=== PATIENT | female | born 1980 | race Caucasian/White ===

== ENCOUNTER → 2018-08-24 | Outpatient (CLI) | payer OTHER ==
[2018-08-24 13:10] VITALS: BP 131/67; PULSE 66; RESP 12; TEMP 98; BMI 31.6
--- NOTE | 2018-08-24 14:10 | P.GSHP ---
History of Present Illness H&P Date: 08/24/18 Chief Complaint: abnormal mammogram/ultrasound The patient is a 38-year-old white female who presents for breast evaluation. She underwent a bilateral screening mammogram on 820 [id number]. As a result of this study it was recommended that she undergo a left breast diagnostic mammogram [place] [address]. As a result of these studies it was recommended that she undergo a repeat left breast mammogram in 6 months secondary to a faint density identified over the left pectoralis muscle. Additionally on ultrasound she was noted to have 2 lesions one at the 3 o'clock position which was 1.3 cm x 1 cm parallel to the skin and one at the 1 o'clock position which was 0.7 cm x 0.6 cm and was felt to be a suspicious enough to warrant a biopsy of this area. She herself has noted in the 11 o'clock position of the left breast a skin change and slight nodularity and in the 1 o'clock position of the breast is noted a skin change but no discrete nodularity. She does not have any history of infection or trauma to the breast. She has no history of any abnormal nipple discharge. Family history: 1. paternal grandfather: colon cancer 70's Hormonal history: menarche: 13 : 2, 2 children, first at 15, breast fed: no periods: hysterectomy: early 30's took both ovaries, endometriosis BCP: none hormones: none Surgical history: 1. Total abdominal hysterectomy 2. 2 ear surgeries on the right ear Medical History: 1. seizures 2. psoriasis 3. low back pain Social History: smoke: none alcohol: occasional drugs: Marijuana daily used for seizures and lower back pain - Constitutional Comment: BMI 31.6 Constitutional: Reports sweats, Denies chills, Denies fever - EENT Eyes: denies blurred vision, denies pain Ears: deny: decreased hearing, tinnitus Ears, nose, mouth and throat: Denies headache, Denies sore throat - Breasts Breasts: bilateral: as per HPI - Cardiovascular Cardiovascular: Denies chest pain, Denies shortness of breath - Respiratory Respiratory: Denies cough, Denies 7 - Gastrointestinal Comment: Irritable Bowel syndrome Gastrointestinal: Denies abdominal pain, Denies diarrhea, Denies nausea, Denies vomiting - Genitourinary (Female) Genitourinary: Denies dysuria, Denies hematuria - Menstruation Menstruation: Reports post hysterectomy - Musculoskeletal Comment: arthritis lower back - Integumentary Comment: psoriasis Integumentary: Denies pruritus, Denies rash - Neurological Neurological: Denies numbness, Denies weakness - Psychiatric Psychiatric: Denies anxiety, Denies depression - Endocrine Endocrine: Denies fatigue, Denies weight change - Hematologic/Lymphatic Comment: none - Allergic/Immunologic Comment: none Allergic/Immunologic: Reports as per HPI Past Medical History Past Medical History: Seizure Disorder History of Any Multi-Drug Resistant Organisms: None Reported Past Surgical History: Ear Surgery, Hysterectomy Smoking Status: Never smoker Past Drug Use History: Marijuana - Past Family History Mother Family Medical History: Fibromyalgia, Rheumatoid Arthritis (RA), Skin Disorder Father History Unknown: Yes Medications and Allergies Home Medications Medication Instructions Recorded Confirmed Type Clindamycin Topical Soln 1 applic TOPICAL BID 08/24/18 08/24/18 History [Cleocin-T Topical Soln] Surgical - Exam Vital Signs Temp Pulse Resp BP Pulse Ox 98 F 66 12 131/67 99 08/24/18 13:03 08/24/18 13:03 08/24/18 13:03 08/24/18 13:03 08/24/18 13:03 BMI 31.6 - General well developed, well nourished, no distress - Eyes normal ocular movement, no icteric - ENT no hearing loss, no congestion - Neck no masses, trachea midline - Respiratory normal respiratory effort, clear to auscultation - Cardiovascular Rhythm: regular Heart Sounds: normal: S1, S2 - Abdomen Abdomen: soft, non tender, no guarding, no rigid, no rebound - Integumentary tattoos no rash, no abnormal pigmentation - Neurologic no disoriented, no combative - Musculoskeletal normal gait, normal posture - Psychiatric oriented to time, oriented to person, oriented to place, speech is normal, memory intact breast exam: right breast: multi-positional examination no dominant masses or nodules of concern, fibrocystic changes, changes of psoriasis noted on the breast Right axilla: No adenopathy of concern Left breast: Multi-positional examination no dominant masses or nodules of concern in the breast parenchyma, there is increased fullness at the 1 o'clock position without a discrete mass There appears to be a sebaceous cyst at the 11 o'clock position of the breast and a possible cystic area between the 1 to 2 o'clock position of the breast Left axilla: No dominant masses or nodules of concern Results radiographs reviewed Assessment and Plan Assessment: Impression: 1. Radiographic/ultrasound abnormality of the left breast 2. Probable sebaceous cyst at the 11 o'clock position of the left breast and a questionable cystic area at the 1 to 2 o'clock position of the left breast 3. Fibrocystic changes of the breast noted on palpation 4. Seizures 5. Psoriasis Plan: 1. Ultrasound-guided core biopsy of the left breast 2. Following results of this will review pathology and we'll most likely recommend excision of what appears to be sebaceous cyst at 11:00 and possibly 1 to 2:00 in the operating room 3. Medical management of medical problems 4. Follow up here 1 week after ultrasound core biopsy of the left breast Cc: Dr. Hong
== END | disposition home or self-care (01) ==
LOC: WWCWWP 13:00 → EDSTATUS 13:20
PROVIDERS: ATTEND Surgery
DX: Z53.9 Procedure and treatment not carried out, unspecified reason (principal)

== ENCOUNTER → 2018-08-29 | Day surgery (SDC) | payer OTHER ==
[2018-08-29 12:09] VITALS: RESP 16; BMI 31.6
[2018-08-29 13:42] VITALS: BP 109/75; PULSE 65; TEMP 98.2
--- NOTE | 2018-08-29 16:02 | USB ---
Ultrasound-guided breast cyst aspiration HISTORY: Abnormal mammogram, abnormal left breast ultrasound PROCEDURE: Maximal barrier technique was utilized. Ultrasound was used to sterile technique. The skin overlying a suitable path to the patient's cystic focus at the 1:00 position of the left breast zone A was loca lized with ultrasound and the overlying skin prepped and draped. Lidocaine used for local anesthesia. 21-gauge needle was advanced under ultrasound and the lesion was aspirated, dark fluid obtained. Les ion collapsed following aspiration. There is no immediate application. Hemostasis achieved. Patient r emained in stable condition. IMPRESSION: Status post ultrasound-guided breast cyst aspiration, precautionary follow-up breast ultr asound could be performed in 6 months.
== END ==
LOC: RADUSWWP 11:49
PROVIDERS: ATTEND Surgery
DX: N60.02 Solitary cyst of left breast (principal)
CPT/HCPCS: 76942

== ENCOUNTER → 2018-09-06 | Outpatient (CLI) | payer OTHER ==
[2018-09-06 13:33] VITALS: BP 133/80; PULSE 80; RESP 20; TEMP 98.6; BMI 27.2
--- NOTE | 2018-09-06 13:33 | P.PN ---
Subjective Progress Note Date: 09/06/18 Principal diagnosis: Cystic lesion in the breast The patient is a 38-year-old white female who is status post ultrasound-guided cyst aspiration of the left breast approximately 1 week ago. At that time she was noted to have cystic fluid with resolution of what appeared to be a simple cyst and the fluid was not sent for cytology. The patient returns today for discussion regarding the procedure. At additional he the patient was noted at her prior appointment to have a lesion at 11:00 and one at the 1 to 2 o'clock position in the breast. These 2 areas remained persistent. We have discussed the fact that the cystic findings were most likely fibrocystic in nature this will be followed closely at minimum a repeat ultrasound of the left breast in 6 months time with appointment at that time. Patient does not have any complaints related to the procedure. Objective - Constitutional General appearance: Present: obese - EENT Eyes: Present: EOMI ENT: Present: hearing grossly normal - Respiratory Respiratory: bilateral: CTA - Cardiovascular Rhythm: regular Heart sounds: normal: S1, S2 - Gastrointestinal General gastrointestinal: Present: soft - Integumentary Integumentary Comment(s): Right breast examination: No evidence of any infection or hematoma related to the prior cyst aspiration There remains nodularity at the 11 o'clock position in the 1 2 o'clock position in the left breast That at the 11 o'clock position appears to be consistent with a sebaceous cyst. That in the morning 2 o'clock position appears to be slightly deeper. We have therefore recommended FNA of the area at the 1 to 2 o'clock position in the left breast The area of the 1 to 2 o'clock position was prepped using Betadine a 22-gauge needle was inserted into the area of concern multiple passes were obtained and cells were collected these were placed on a slide and sent to pathology. Assessment and Plan Assessment: Impression: 1. Cystic changes left breast 2. Await FNA results Plan: 1. Excision in the OR of probable sebaceous cyst 11:00 area of the left breast 2. Excision of cystic area in the left breast 1 to 2 o'clock position depending on FNA results and clinical status of the patient Orifice of the procedure discussed with the patient and her this was scheduled in the near future. Cc:Dr. Hong
== END | disposition home or self-care (01) ==
LOC: WWCWWP 12:49
PROVIDERS: ATTEND Surgery
DX: N64.89 Other specified disorders of breast (principal)
CPT/HCPCS: 88173; 88305

== ENCOUNTER → 2018-09-14 | Outpatient (CLI) | payer OTHER ==
[2018-09-14 10:24] VITALS: BP 109/76; PULSE 90; RESP 20; TEMP 98.4; BMI 31.6
--- NOTE | 2018-09-14 10:50 | P.PN ---
Progress Note - Text Progress Note Date: 09/14/18 The patient is a 38-year-old white female who is status post FNA of an area of concern in the left breast. The FNA was benign breast tissue. The patient does have residual nodularity consistent with a most likely sebaceous cyst at approximately the 12 o'clock position of the left breast. We will continue to follow the breast conservatively for the areas for which she had a core biopsy and the FNA. We will recommend excision in the operating room of sebaceous cyst at the 12 o'clock position of the left breast. Physical exam: Lungs: Clear Heart: Regular rate and rhythm Abdomen: Soft Breast examination: Left breast no evidence of any ecchymosis or infection related to core biopsies, nodularity 12 o'clock position most likely sebaceous cyst Impression: 1. Fibrocystic breast changes 2. Probable sebaceous cyst 12:00 left breast Plan: 1. Conservative management and follow-up of fibrocystic breast changes repeat left breast mammogram and ultrasound in 6 months 2. Excision of cystic lesion of the left breast in the operating room The patient and her understand the risks and benefits and wished to proceed CC: Dr. Hong
== END ==
LOC: WWCWWP 09:41
PROVIDERS: ATTEND Surgery
DX: Z53.9 Procedure and treatment not carried out, unspecified reason (principal)

== ENCOUNTER 2018-10-09 10:17 | Day surgery (SDC) | payer OTHER ==
[2018-10-05 08:33] VITALS: BMI 31.6
[~2018-10-09 10:17] MED LIST: DEXAMETHASONE SOD PHOSPHATE 10 MG/ML 1 ML VIAL IV ONE; HEPARIN SODIUM,PORCINE 5,000 UNIT/ML 1 ML VIAL SQ ONE; HYDROmorphone 0.5 MG/0.5 ML SYRINGE IVP PRN; LACTATED RINGERS 1,000 ML IV SCH; ONDANSETRON 4 MG/2 ML VIAL IVP ONE; Pre Op ABX Message 1 EACH MISC MISCELLANE ONE; SCOPOLAMINE 1.5MG/72HR PATCH TRANSDERM ONE
[2018-10-09] MEDS ORDERED: LIDOCAINE 1% 20 ML VIAL (10MG/ML) FOR IV START INTRADERMA ONE (11:54)
[2018-10-09] MEDS ORDERED: HEPARIN SODIUM,PORCINE 5,000 UNIT/ML 1 ML VIAL SQ ONE (14:52)
[2018-10-09] MEDS ORDERED: PROPOFOL 10 MG/ML 20 ML VIAL IV ONE (15:07)
[2018-10-09] MEDS ORDERED: MIDAZOLAM 2 MG/2 ML VIAL ONE (15:07)
[2018-10-09] MEDS ORDERED: LIDOCAINE 1% INJ 10MG/ML (20 ML MDV) ONE (15:07)
[2018-10-09] MEDS ORDERED: fentaNYL (PF) 50 MCG/ML 2 ML AMP ONE (15:07)
[2018-10-09] MEDS ORDERED: LIDOCAINE 1% INJ 10MG/ML (20 ML MDV) SQ ONE ×2 (15:09)
--- NOTE | 2018-10-09 15:37 | P.OP ---
Date of Procedure: 10/09/18 Preoperative Diagnosis: Cystic lesion left breast 12:00 Postoperative Diagnosis: Same Procedure(s) Performed: Excision of superficial cystic lesion left breast 12:00 Anesthesia: MAC Surgeon: Cristina Alcantar Estimated Blood Loss (ml): 1 IV fluids (ml): 200 Pathology: other (Superficial cystic lesion left breast) Condition: stable Disposition: PACU Indications for Procedure: Cystic lesion left breast intermittently fluctuating in size suspect may be sebaceous cyst Operative Findings: Cystic lesion superficial tissue left breast Description of Procedure: The patient was brought to the operating room and the left breast was prepped and draped in a sterile fashion following sedation. 1% lidocaine was used to anesthetize the area of concern. An elliptical incision was made around the cystic area of concern. Incision was approximately 3 cm x 1 cm in size. The incision was carried through the skin and subcutaneous tissue into the superficial subcutaneous tissue. The lesion was excised. After assured that hemostasis was attained a deep 4-0 Vicryl was placed. This is followed by 4-0 Monocryl skin closure. The patient tolerated the procedure in stable condition. All instrument and sponge counts were correct at the end of the case.
--- NOTE | 2018-10-09 15:39 | P.DS ---
Providers Attending physician: Cristina Alcantar Primary care physician: Lizzeth Hong Plan - Discharge Summary New Discharge Prescriptions: No Action Betamethasone Dipropionate [Diprolene 0.05% Ointment] 1 each TOPICAL BID Divalproex [Depakote] 250 mg PO QAM Divalproex [Depakote] 500 mg PO HS Discharge Medication List Betamethasone Dipropionate [Diprolene 0.05% Ointment] 1 each TOPICAL BID [History] Divalproex [Depakote] 250 mg PO QAM 08/28/18 [History] Divalproex [Depakote] 500 mg PO HS 10/05/18 [History] Follow up Appointment(s)/Referral(s): Cristina Alcantar MD [STAFF PHYSICIAN] - 1 Week Activity/Diet/Wound Care/Special Instructions: Do not drive today May shower after 48 hours extra Strength Tylenol as needed for pain Discharge Disposition: HOME SELF-CARE
[2018-10-09 15:55] VITALS: TEMP 97.5
[2018-10-09 16:04] VITALS: RESP 16
[2018-10-09 16:51] VITALS: BP 119/84; PULSE 62
== END 2018-10-09 17:08 | disposition home or self-care (01) ==
LOC: OR 10:17
PROVIDERS: ATTEND Surgery
DX: N60.02 Solitary cyst of left breast (principal); L40.9 Psoriasis, unspecified; G40.909 Epilepsy, unspecified, not intractable, without status epilepticus; Z79.899 Other long term (current) drug therapy
CPT/HCPCS: 19120; J2250; J1644; J1100; J2405; J2001; J3010; J2704; 88305

== ENCOUNTER → 2018-10-25 | Outpatient (CLI) | payer OTHER ==
[2018-10-25 08:45] VITALS: BP 119/73; PULSE 72; RESP 18; TEMP 98.2; BMI 31.6
--- NOTE | 2018-10-25 09:23 | P.PN ---
Progress Note - Text Progress Note Date: 10/25/18 Patient is a 38-year-old white female postoperative from a left breast biopsy. Pathology revealed nodular hypertrophic scar. The patient has no complaints at this time. Incision clean and dry Impression: 1. Initially the patient was seen with a radiographic abnormality in the left breast and was noted to have a palpable abnormality for which open biopsy was ultimately performed. The patient did have aspiration of a cystic lesion in the left breast at 1:00 on [id number]. She also had an FNA of an area in the left breast which revealed ductal epithelial cells and adipose tissue. Plan: 1. Repeat left breast mammogram and ultrasound in 6 months with physician exam at that time Cc: Dr. Hong
== END | disposition home or self-care (01) ==
LOC: WWCWWP 08:26
PROVIDERS: ATTEND Surgery
DX: Z53.9 Procedure and treatment not carried out, unspecified reason (principal)

== ENCOUNTER 2020-11-06 14:32 | Emergency (ER) | payer OTHER ==
[2020-11-06] MEDS: SODIUM CHLORIDE 0.9% 500 ML 500 ML IV STA (15:20)
--- NOTE | 2020-11-06 15:35 | ED ---
General Adult HPI - General Chief complaint: Abdominal Pain Stated complaint: ABD pain Time Seen by Provider: 11/06/20 14:56 Source: patient, RN notes reviewed, old records reviewed Mode of arrival: ambulatory Limitations: no limitations - History of Present Illness Initial comments: 40-year-old female presenting for evaluation of abdominal pain. Patient has been pain for the past 4 days. She's had subjective fever and chills. Pain is predominantly around her belly button as well as right lower quadrant. She denies dysuria or hematuria. She denies flank pain. She does report some nausea and diarrhea. Previous history of hysterectomy. - Related Data Home Medications Medication Instructions Recorded Confirmed Betamethasone Dipropionate 1 each TOPICAL BID 08/28/18 10/25/18 [Diprolene 0.05% Ointment] Divalproex [Depakote] 250 mg PO QAM 08/28/18 10/25/18 Divalproex [Depakote] 500 mg PO HS 10/05/18 10/25/18 Allergies Allergy/AdvReac Type Severity Reaction Status Date / Time No Known Allergies Allergy Verified 11/06/20 16:03 Review of Systems ROS Statement: Those systems with pertinent positive or pertinent negative responses have been documented in the HPI. ROS Other: All systems not noted in ROS Statement are negative. Past Medical History Past Medical History: Seizure Disorder, Skin Disorder Additional Past Medical History / Comment(s): psoriasis History of Any Multi-Drug Resistant Organisms: None Reported Past Surgical History: Ear Surgery, Hysterectomy Past Anesthesia/Blood Transfusion Reactions: No Reported Reaction Past Psychological History: No Psychological Hx Reported Smoking Status: Never smoker Past Alcohol Use History: None Reported Past Drug Use History: Marijuana - Past Family History Mother Family Medical History: Fibromyalgia, Rheumatoid Arthritis (RA), Skin Disorder Father History Unknown: Yes General Exam Limitations: no limitations General appearance: alert, in no apparent distress Head exam: Present: atraumatic, normocephalic Eye exam: Present: normal appearance, PERRL ENT exam: Present: mucous membranes dry Neck exam: Present: normal inspection. Absent: tenderness Respiratory exam: Present: normal lung sounds bilaterally. Absent: respiratory distress Cardiovascular Exam: Present: regular rate, normal rhythm GI/Abdominal exam: Present: soft, tenderness (Periumbilical or right lower quadrant). Absent: distended, guarding, rebound Extremities exam: Present: normal inspection, normal capillary refill. Absent: pedal edema Neurological exam: Present: alert, oriented X3, CN II-XII intact. Absent: motor sensory deficit Psychiatric exam: Present: normal affect, normal mood Skin exam: Present: warm, dry, intact. Absent: cyanosis, diaphoretic Course Vital Signs 11/06/20 11/06/20 14:46 15:15 Temperature 98.3 F Pulse Rate 61 72 Respiratory 18 18 Rate Blood Pressure 139/85 137/94 O2 Sat by Pulse 100 100 Oximetry Medical Decision Making - Medical Decision Making 40-year-old female presenting with right-sided abdominal pain. Workup is initiated, normal CBC, no leukocytosis, normal CMP, negative urinalysis. CT does show colitis in the ascending colon which is consistent with the patient's symptoms however underlying mass is not excluded. Patient is informed of this inflammatory change and the need for colonoscopy after her symptoms resolved. She has had previous colonoscopy with Dr. Araya and I do recommend that she follows up on an outpatient basis. Diagnosis: Abdominal pain, colitis - Lab Data Result diagrams: 11/06/20 15:00 11/06/20 15:00 Lab Results 11/06/20 11/06/20 11/06/20 Range/Units 15:00 15:00 15:00 WBC 7.2 (3.8-10.6) k/uL RBC 4.33 (3.80-5.40) m/uL Hgb 13.8 (11.4-16.0) gm/dL Hct 40.7 (34.0-46.0) % MCV 94.1 (80.0-100.0) fL MCH 32.0 (25.0-35.0) pg MCHC 34.0 (31.0-37.0) g/dL RDW 13.2 (11.5-15.5) % Plt Count 240 (150-450) k/uL MPV 8.3 Neutrophils % 68 % Lymphocytes % 23 % Monocytes % 6 % Eosinophils % 1 % Basophils % 1 % Neutrophils # 4.9 (1.3-7.7) k/uL Lymphocytes # 1.6 (1.0-4.8) k/uL Monocytes # 0.4 (0-1.0) k/uL Eosinophils # 0.1 (0-0.7) k/uL Basophils # 0.0 (0-0.2) k/uL PT 10.5 (9.0-12.0) sec INR 1.0 (<1.2) APTT 23.8 (22.0-30.0) sec Sodium (137-145) mmol/L Potassium (3.5-5.1) mmol/L Chloride (98-107) mmol/L Carbon Dioxide (22-30) mmol/L Anion Gap mmol/L BUN (7-17) mg/dL Creatinine (0.52-1.04) mg/dL Est GFR (CKD-EPI)AfAm (>60 ml/min/1.73 sqM) Est GFR (CKD-EPI)NonAf (>60 ml/min/1.73 sqM) Glucose (74-99) mg/dL Plasma Lactic Acid Gerard (0.7-2.0) mmol/L Calcium (8.4-10.2) mg/dL Total Bilirubin (0.2-1.3) mg/dL AST (14-36) U/L ALT (4-34) U/L Alkaline Phosphatase (38-126) U/L Total Protein (6.3-8.2) g/dL Albumin (3.5-5.0) g/dL Amylase (30-110) U/L Lipase (23-300) U/L Urine Color Light Yellow Urine Appearance Clear (Clear) Urine pH 7.0 (5.0-8.0) Ur Specific [place] 1.012 (1.001-1.035) Urine Protein Negative (Negative) Urine Glucose (UA) Negative (Negative) Urine Ketones Negative (Negative) Urine Blood Negative (Negative) Urine Nitrite Negative (Negative) Urine Bilirubin Negative (Negative) Urine Urobilinogen <2.0 (<2.0) mg/dL Ur Leukocyte Esterase Negative (Negative) 11/06/20 11/06/20 Range/Units 15:00 15:00 WBC (3.8-10.6) k/uL RBC (3.80-5.40) m/uL Hgb (11.4-16.0) gm/dL Hct (34.0-46.0) % MCV (80.0-100.0) fL MCH (25.0-35.0) pg MCHC (31.0-37.0) g/dL RDW (11.5-15.5) % Plt Count (150-450) k/uL MPV Neutrophils % % Lymphocytes % % Monocytes % % Eosinophils % % Basophils % % Neutrophils # (1.3-7.7) k/uL Lymphocytes # (1.0-4.8) k/uL Monocytes # (0-1.0) k/uL Eosinophils # (0-0.7) k/uL Basophils # (0-0.2) k/uL PT (9.0-12.0) sec INR (<1.2) APTT (22.0-30.0) sec Sodium 137 (137-145) mmol/L Potassium 4.6 (3.5-5.1) mmol/L Chloride 105 (98-107) mmol/L Carbon Dioxide 26 (22-30) mmol/L Anion Gap 6 mmol/L BUN 10 (7-17) mg/dL Creatinine 0.80 (0.52-1.04) mg/dL Est GFR (CKD-EPI)AfAm >90 (>60 ml/min/1.73 sqM) Est GFR (CKD-EPI)NonAf >90 (>60 ml/min/1.73 sqM) Glucose 91 (74-99) mg/dL Plasma Lactic Acid Gerard 1.0 (0.7-2.0) mmol/L Calcium 9.3 (8.4-10.2) mg/dL Total Bilirubin 0.6 (0.2-1.3) mg/dL AST 25 (14-36) U/L ALT 16 (4-34) U/L Alkaline Phosphatase 65 (38-126) U/L Total Protein 7.4 (6.3-8.2) g/dL Albumin 4.4 (3.5-5.0) g/dL Amylase 36 (30-110) U/L Lipase 32 (23-300) U/L Urine Color Urine Appearance (Clear) Urine pH (5.0-8.0) Ur Specific [place] (1.001-1.035) Urine Protein (Negative) Urine Glucose (UA) (Negative) Urine Ketones (Negative) Urine Blood (Negative) Urine Nitrite (Negative) Urine Bilirubin (Negative) Urine Urobilinogen (<2.0) mg/dL Ur Leukocyte Esterase (Negative) Disposition Clinical Impression: Abdominal pain, Colitis Disposition: HOME SELF-CARE Condition: Good Instructions (If sedation given, give patient instructions): Abdominal Pain (ED), Colitis (ED) Is patient prescribed a controlled substance at d/c from ED?: No Referrals: Lizzeth Hong DO [Primary Care Provider] - 1-2 days Danny Araya MD [STAFF PHYSICIAN] - 1-2 days Time of Disposition: 16:05
[2020-11-06 15:36] LABS: Basophils % (A) 1 %; Eosinophils # (A) 0.1 k/uL (0-0.7); Eosinophils % (A) 1 %; HCT 40.7 % (34.0-46.0); HGB 13.8 gm/dL (11.4-16.0); Lymphocytes # (A) 1.6 k/uL (1.0-4.8); Lymphocytes % (A) 23 %; MCV 94.1 fL (80.0-100.0); Mean Platelet Volume 8.3; Monocytes # (A) 0.4 k/uL (0-1.0); Monocytes % (A) 6 %; Neutrophils # (A) 4.9 k/uL (1.3-7.7); Neutrophils % (A) 68 %; Platelet Count 240 k/uL (150-450); RBC 4.33 m/uL (3.80-5.40); RDW 13.2 % (11.5-15.5); WBC 7.2 k/uL (3.8-10.6)
[2020-11-06 15:39] LABS: Appearance,Urine Clear (Clear); Bilirubin,Urine Negative (Negative); Blood,Urine Negative (Negative); Color,Urine Light Yellow; Glucose,Urine (UA) Negative (Negative); Ketones,Urine Negative (Negative); Leukocyte Esterase,Urine Negative (Negative); Nitrite,Urine Negative (Negative); Protein,Urine Negative (Negative); Specific Gravity,Urine 1.012 (1.001-1.035); Urobilinogen,Urine <2.0 mg/dL (<2.0)
[2020-11-06 15:46] LABS: ALT 16 U/L (4-34); AST 25 U/L (14-36); African American GFR (CKD) >90 (>60 ml/min/1.73 sqM); Albumin 4.4 g/dL (3.5-5.0); Alkaline Phosphatase 65 U/L (38-126); Amylase 36 U/L (30-110); Anion Gap 6 mmol/L; Blood Urea Nitrogen 10 mg/dL (7-17); Calcium 9.3 mg/dL (8.4-10.2); Carbon Dioxide 26 mmol/L (22-30); Chloride 105 mmol/L (98-107); Glucose 91 mg/dL (74-99); Lipase 32 U/L (23-300); Non-African American GFR(CKD) >90 (>60 ml/min/1.73 sqM); Potassium 4.6 mmol/L (3.5-5.1); Sodium 137 mmol/L (137-145); Total Bilirubin 0.6 mg/dL (0.2-1.3); Total Protein 7.4 g/dL (6.3-8.2)
[2020-11-06 15:51] LABS: Partial Thromboplastin Time 23.8 sec (22.0-30.0); Prothrombin Time 10.5 sec (9.0-12.0)
--- NOTE | 2020-11-06 15:52 | CT ---
EXAMINATION TYPE: CT abdomen pelvis w con DATE OF EXAM: 11/06/2020 COMPARISON: 01/18/2012 INDICATION: umbilical pain, RLQ pain DLP: 1194.8 mGycm, Automated exposure control for dose reduction was used. CONTRAST: 100 mL of Isovue 300. Study performed without Oral Contrast TECHNIQUE: Axial images were obtained from above the diaphragm to the pubic rami in the axial plane a t 5 mm thick sections. Reconstructed images are reviewed on the computer in the coronal plane. FINDINGS: Limited CT sections are obtained the lung bases. The lung bases are clear. CT ABDOMEN: Liver: Couple small cysts are likely present within the liver. Spleen: Normal Pancreas: Normal Adrenal glands: The adrenal glands are normal. Gallbladder: Normal Kidneys: No masses are evident. No hydronephrosis is present. No cysts are present. Delayed images were obtained through the kidneys, which remain unremarkable. Aorta: Normal Inferior vena cava: Normal. CT PELVIS: Loops of bowel within the abdomen and pelvis are normal. The study is without oral contrast limit ing bowel evaluation. Mild wall thickening may be within the ascending colon region. Mild colitis cou ld be considered. Diverticuli are scattered within the sigmoid colon there is fecal debris within the sigmoid colon. Some wall thickening within the sigmoid is not excluded. Appendix: The appendix is visualized appears normal. Urinary bladder: Normal. Genitourinary structures: Uterus is not identified. What appears to be the left ovary may contain a 1 .6 cm cyst. Osseous structures: No suspicious lytic or sclerotic lesions. IMPRESSIONS: 1. There may be some mild colitis of the ascending colon and possibly through the sigmoid colon. Con bat person follow-up of the sigmoid colon, underlying mass is not excluded. 2. Diverticulosis without acute diverticulitis. 3. Appendix is visualized is normal
[2020-11-06 16:19] VITALS: BP 140/90; PULSE 70; RESP 16; TEMP 97.9
== END 2020-11-06 16:19 | disposition home or self-care (01) ==
LOC: EC 14:32
DX: K52.9 Noninfective gastroenteritis and colitis, unspecified (principal); G40.909 Epilepsy, unspecified, not intractable, without status epilepticus; Z79.899 Other long term (current) drug therapy; Z90.710 Acquired absence of both cervix and uterus
CPT/HCPCS: 99284; 96360; 36415; 80053; 82150; 83605; 83690; 85025; 85610; 85730; 81003; 74177; Q9967

== ENCOUNTER 2020-12-03 08:53 | Day surgery (SDC) | payer OTHER ==
[2020-12-01 15:39] VITALS: BMI 31.6
[~2020-12-03 08:53] MED LIST changes: -DEXAMETHASONE SOD PHOSPHATE 10 MG/ML 1 ML VIAL IV ONE; -HEPARIN SODIUM,PORCINE 5,000 UNIT/ML 1 ML VIAL SQ ONE; -HYDROmorphone 0.5 MG/0.5 ML SYRINGE IVP PRN; +LIDOCAINE 1% (10MG/ML) FOR IV START INTRADERMA PRN; -ONDANSETRON 4 MG/2 ML VIAL IVP ONE; -Pre Op ABX Message 1 EACH MISC MISCELLANE ONE; -SCOPOLAMINE 1.5MG/72HR PATCH TRANSDERM ONE
[2020-12-03 10:07] VITALS: RESP 16; TEMP 98.6
[2020-12-03] MEDS ORDERED: PROPOFOL 10 MG/ML 20 ML VIAL IV ONE (10:45)
--- NOTE | 2020-12-03 10:48 | P.GSHP ---
History of Present Illness H&P Date: 12/03/20 Chief Complaint: Constipation, diarrhea possible colitis This a 40-year-old female who presents today for colonoscopy. She's had issues with intermittent diarrhea and constipation. She's being worked colitis. Also had complaints of abdominal pain. Past Medical History Past Medical History: Seizure Disorder, Skin Disorder Additional Past Medical History / Comment(s): recurrent abd pain,hx psoriasis,last seizure-2014 History of Any Multi-Drug Resistant Organisms: None Reported Past Surgical History: Ear Surgery, Hysterectomy Past Anesthesia/Blood Transfusion Reactions: No Reported Reaction Additional Past Anesthesia/Blood Transfusion Reaction / Comment(s): no hx blood transfusion Smoking Status: Never smoker - Past Family History Mother Family Medical History: Fibromyalgia, Rheumatoid Arthritis (RA), Skin Disorder Father History Unknown: Yes Medications and Allergies Home Medications Medication Instructions Recorded Confirmed Type Divalproex [Depakote] 250 mg PO QAM 08/28/18 12/01/20 History Divalproex [Depakote] 500 mg PO HS 10/05/18 12/01/20 History Levothyroxine Sodium [Synthroid] 50 mcg PO QAM 11/06/20 11/06/20 History Allergies Allergy/AdvReac Type Severity Reaction Status Date / Time No Known Allergies Allergy Verified 12/01/20 15:35 Surgical - Exam Vital Signs Temp Pulse Resp BP Pulse Ox 98.6 F 75 16 131/67 100 12/03/20 10:05 12/03/20 10:05 12/03/20 10:05 12/03/20 10:05 12/03/20 10:05 - General well developed, well nourished, no distress - Eyes PERRL - ENT normal pinna - Neck no masses - Respiratory normal expansion - Cardiovascular Rhythm: regular - Abdomen Abdomen: soft, non tender Assessment and Plan Assessment: Diarrhea, constipation, abdominal pain. We'll perform colonoscopy
--- NOTE | 2020-12-03 11:04 | P.OP ---
Date of Procedure: 12/03/20 Preoperative Diagnosis: Diarrhea Constipation Abdominal pain Postoperative Diagnosis: Diverticulosis Procedure(s) Performed: Colonoscopy Anesthesia: MAC Surgeon: Danny Araya Pathology: none sent Condition: stable Disposition: PACU Description of Procedure: The patient's placed on the endoscopy table in the lateral position. She received IV sedation. Digital rectal exam was performed which revealed no abnormalities. The flexible colonoscope was then placed patient anus passed throughout the colon. The colon was quite tortuous. The scope cannot be passed beyond the mid transverse colon secondary to tortuosity valve. This point scope was withdrawn. The distal transverse colon appeared normal. In the descending colon there was a few scattered diverticula. The; was more extensive diverticular changes. Scope summer back the rectum and this appeared normal. Scope was withdrawn for patient.
[2020-12-03 11:39] VITALS: BP 121/84; PULSE 71
== END 2020-12-03 12:08 | disposition home or self-care (01) ==
LOC: ORWHC2ENDO 08:53
PROVIDERS: ATTEND Surgery
DX: K57.30 Diverticulosis of large intestine without perforation or abscess without bleeding (principal); K59.00 Constipation, unspecified; Q43.8 Other specified congenital malformations of intestine; G40.909 Epilepsy, unspecified, not intractable, without status epilepticus; L40.9 Psoriasis, unspecified; E07.9 Disorder of thyroid, unspecified; Z98.890 Other specified postprocedural states; Z90.710 Acquired absence of both cervix and uterus; Z79.899 Other long term (current) drug therapy; Z79.890 Hormone replacement therapy; Z82.69 Family history of other diseases of the musculoskeletal system and connective tissue; Z82.61 Family history of arthritis; Z84.0 Family history of diseases of the skin and subcutaneous tissue
CPT/HCPCS: 45378; J2704

== ENCOUNTER 2020-12-15 06:31 | Day surgery (SDC) | payer OTHER ==
[2020-12-14 09:25] VITALS: BMI 32.4
[~2020-12-15 06:31] MED LIST changes: +ACETAMINOPHEN TAB 500 MG TAB PO PRN; +DEXAMETHASONE SOD PHOSPHATE 4 MG/ML 1 ML VIAL IV ONE; +HEPARIN SODIUM,PORCINE 5,000 UNIT/ML 1 ML VIAL SQ PRN; -LIDOCAINE 1% (10MG/ML) FOR IV START INTRADERMA PRN; +MIDAZOLAM 2 MG/2 ML VIAL IV PRN; +ONDANSETRON 4 MG/2 ML VIAL IVP ONE; +SCOPOLAMINE 1.5MG/72HR PATCH TRANSDERM ONE
[2020-12-15] MEDS ORDERED: HYDROmorphone 0.5 MG/0.5 ML SYRINGE IVP PRN (07:00)
[2020-12-15] MEDS ORDERED: LIDOCAINE 1% (10MG/ML) FOR IV START INTRADERMA ONE (07:25)
[2020-12-15] MEDS ORDERED: fentaNYL (PF) 50 MCG/ML 2 ML AMP ONE (07:43)
[2020-12-15] MEDS ORDERED: PROPOFOL 10 MG/ML 20 ML VIAL IV ONE (07:43)
[2020-12-15] MEDS ORDERED: ROCURONIUM 10 MG/ML (10 ML VIAL) IV ONE (07:43)
[2020-12-15] MEDS ORDERED: SUCCINYLCHOLINE CHLORIDE 100 MG/5 ML SYR IV ONE (07:43)
[2020-12-15] MEDS ORDERED: MIDAZOLAM 2 MG/2 ML VIAL ONE (07:43)
[2020-12-15] MEDS ORDERED: LIDOCAINE 1% INJ 10MG/ML (20 ML MDV) ONE (07:43)
[2020-12-15] MEDS ORDERED: NEOSTIGMINE 1 MG/ML 10 ML VIAL ONE (07:43)
[2020-12-15] MEDS ORDERED: GLYCOPYRROLATE 0.2 MG/ML 2 ML VIAL ONE (07:43)
[2020-12-15] MEDS ORDERED: BUPIVACAIN-EPI 0.5%-1:200,000 30 ML VIAL SQ ONE ×2 (07:53→08:01)
--- NOTE | 2020-12-15 08:25 | P.GSHP ---
History of Present Illness H&P Date: 12/15/20 Chief Complaint: Right upper quadrant pain This a 40-year-old female who presents today for laparoscopic cholecystectomy. She's had complete the right quadrant pain. She's recently found have an abnormal HIDA scan with evidence of biliary dysfunction. Past Medical History Past Medical History: Seizure Disorder, Skin Disorder Additional Past Medical History / Comment(s): recurrent abd pain,hx psoriasis,last seizure-2014 History of Any Multi-Drug Resistant Organisms: None Reported Past Surgical History: Ear Surgery, Hysterectomy Additional Past Surgical History / Comment(s): COLONOSCOPY 12/03/20 Past Anesthesia/Blood Transfusion Reactions: No Reported Reaction Additional Past Anesthesia/Blood Transfusion Reaction / Comment(s): no hx blood transfusion Past Psychological History: No Psychological Hx Reported Smoking Status: Never smoker Past Alcohol Use History: None Reported Past Drug Use History: Marijuana Additional Drug Use History / Comment(s): uses marijuana daily - Past Family History Mother Family Medical History: Fibromyalgia, Rheumatoid Arthritis (RA), Skin Disorder Father History Unknown: Yes Medications and Allergies Home Medications Medication Instructions Recorded Confirmed Type Divalproex [Depakote] 250 mg PO QAM 08/28/18 12/15/20 History Divalproex [Depakote] 500 mg PO HS 10/05/18 12/15/20 History Levothyroxine Sodium [Synthroid] 50 mcg PO QAM 11/06/20 12/15/20 History Ixekizumab [Taltz Syringe] 80 mg SQ QMONTHLY 12/14/20 12/15/20 History Allergies Allergy/AdvReac Type Severity Reaction Status Date / Time No Known Allergies Allergy Verified 12/15/20 06:56 Surgical - Exam Vital Signs Temp Pulse BP Pulse Ox 98 F 64 143/78 99 12/15/20 07:26 12/15/20 07:26 12/15/20 07:26 12/15/20 07:26 - General well developed, well nourished, no distress - Eyes PERRL - ENT normal pinna - Neck no masses - Respiratory normal expansion - Cardiovascular Rhythm: regular - Abdomen Abdomen: soft, non tender Assessment and Plan Assessment: Right quadrant pain Chronic cholecystitis We'll perform laparoscopic cholecystectomy
--- NOTE | 2020-12-15 08:27 | P.OP ---
Date of Procedure: 12/15/20 Preoperative Diagnosis: Cholecystitis Postoperative Diagnosis: Cholecystitis Procedure(s) Performed: Laparoscopic cholecystectomy Anesthesia: AGUSTINA Surgeon: Danny Araya Estimated Blood Loss (ml): 5 Pathology: other (Gallbladder) Condition: stable Disposition: PACU Description of Procedure: The patient was placed on the operating table. The patient received a general endotracheal tube anesthesia. The patients abdomen was prepped and draped in the usual sterile fashion. Through an infraumbilical stab incision, the fascia of the anterior abdominal wall was grasped with a pair of Kochers and then the Veress needle was placed in the peritoneal cavity. Position of the Veress needle was confirmed with positive drop test. The abdomen was then insufflated. After adequate insufflation, the 10 mm trocar was placed in the peritoneal cavity. Following this the laparoscope was placed in the peritoneal cavity. The patient was placed in the head-up, right side up position and then a 5 mm trocar was placed in the right lateral and right subcostal position under direct visualization. A 8 mm trocar was placed in the epigastric position. The gallbladder was grasped in the fundus and infundibulum. Traction on the gallbladder was placed in the lateral and the cephalad positions. The triangle of Calot was visualized.. The cystic duct was bluntly dissected until the union of the cystic duct and common bile duct was seen. A critical view of safety was achieved. The cystic duct was then divided and sealed with the Harmonic scissors. A PDS Endoloop was then placed throughout the cystic duct stump. The cystic artery divided and sealed with the Harmonic scissors. The gallbladder was then removed from the liver bed using Harmonic scissors. The gallbladder was then extracted through the epigastric port site. Operative field was checked for any bleeding spots and Harmonic scissors was used to coagulate the liver bed. The abdomen was irrigated. The trocars were removed. The skin was closed using interrupted 3-0 Vicryl suture. Dermabond dressing were applied. The patient tolerated the procedure well.
[2020-12-15] MEDS ORDERED: KETOROLAC 15 MG/ML 1 ML VIAL IVP ONE (08:29)
[2020-12-15 08:31] VITALS: RESP 16; TEMP 96.9
[2020-12-15 09:41] VITALS: BP 173/80; PULSE 50
== END 2020-12-15 10:47 | disposition home or self-care (01) ==
LOC: OR 06:31
PROVIDERS: ATTEND Surgery
DX: K81.1 Chronic cholecystitis (principal); G40.909 Epilepsy, unspecified, not intractable, without status epilepticus; L40.9 Psoriasis, unspecified; Z90.710 Acquired absence of both cervix and uterus; Z98.890 Other specified postprocedural states; Z82.61 Family history of arthritis; Z79.890 Hormone replacement therapy; Z79.899 Other long term (current) drug therapy
CPT/HCPCS: 47562; 88304; J2250; J1644; J1100; J2710; J0690; J2405; J2001; J3010; J1885; J0330; J2704; J1170